=== PATIENT | female | born 2000 | race Caucasian/White ===

== ENCOUNTER → 2024-09-19 | Outpatient (CLI) | payer BC ==
--- NOTE | 2024-09-19 12:23 | XR ---
EXAMINATION TYPE: XR lumbosacral spine min 4V DATE OF EXAM: 09/19/2024 12:13 PM COMPARISON: None. CLINICAL INDICATION: Female, 23 years old with history of PAIN, TECHNIQUE: 5 view(s) obtained. FINDINGS: No spondylolytic defects are evident. Facets appear normal. Disc heights and vertebral body heights a re preserved. Alignment sagittal plane is preserved. Some mild side bending towards the right may be present which can be related to patient positioning or muscle spasm. There are 5 lumbar-type vertebra l bodies. Pedicles are intact. IMPRESSION: 1. Mild side bending to the right which can be positional or related to muscle spasm. 2. Five-view lumbar spine is otherwise unremarkable. [facility], , 09/19/2024 12:21 PM
--- NOTE | 2024-09-19 12:42 | US ---
EXAMINATION TYPE: US pelvic complete DATE OF EXAM: 09/19/2024 COMPARISON: NONE CLINICAL INDICATION: Female, 23 years old with history of R10.84 Abdominal pain; R10.2 Pelvic pain; B ack pain x 1 month, Hx dominant follicle right ovary TECHNIQUE: Transabdominal (TA). Transabdominal grayscale sonographic images of the pelvis were acquired. Doppler imaging: Not performed. FINDINGS: Date of LMP: 08/20/2024 EXAM MEASUREMENTS: Uterus: 7.4 x 3.7 x 3.9 cm Endometrial Stripe: 1.1 cm Right Ovary: 3.0 x 2.0 x 2.1 cm Left Ovary: 3.8 x 2.0 x 3.0 cm 1. Uterus: Anteverted wnl 2. Endometrium: wnl 3. Right Ovary: wnl 4. Left Ovary: Dominant follicle noted 5. Bilateral Adnexa: wnl 6. Posterior cul-de-sac: Fluid noted IMPRESSION: 1. No evidence for acute process. 2. Endometrium within normal limits for thickness. [facility], , 09/19/2024 12:39 PM
--- NOTE | 2024-09-19 22:33 | XR ---
EXAMINATION TYPE: XR thoracic spine complete DATE OF EXAM: 09/19/2024 12:13 PM COMPARISON: None. CLINICAL INDICATION: Female, 23 years old with history of [id number] BACK PAIN, TECHNIQUE: 3 view(s) obtained. FINDINGS: Mild scoliosis present with convexity to the right centered at T5. Vertebral body heights are preserv ed. Disc heights are preserved. Alignment and sagittal planes appears normal. IMPRESSION: 1. Mild scoliosis which can be positional or related to muscle spasm. [facility], , 09/19/2024 10:31 PM
== END | disposition home or self-care (01) ==
LOC: RADUSWWP 11:17
PROVIDERS: ATTEND Family Medicine
DX: M41.84 Other forms of scoliosis, thoracic region (principal); R10.2 Pelvic and perineal pain; M54.50 Low back pain, unspecified; M62.838 Other muscle spasm
CPT/HCPCS: 72072; 72110; 76856

== ENCOUNTER 2025-02-19 09:16 | Day surgery (SDC) | payer BC ==
[~2025-02-19 09:16] MED LIST: LIDOCAINE 1% (10MG/ML) FOR IV START INTRADERMA PRN
[2025-02-19 10:05] VITALS: RESP 16; TEMP 98.1
[2025-02-19] MEDS: LACTATED RINGERS 1,000 ML IV SCH (10:12)
[2025-02-19] MEDS: IV FLUID CONTINUATION 1,000 ML IV ONE (10:12)
[2025-02-19] MEDS ORDERED: PROPOFOL 10 MG/ML 20 ML VIAL IV ONE (11:37)
--- NOTE | 2025-02-19 11:42 | P.GSHP ---
History of Present Illness H&P Date: 02/19/25 Chief Complaint: Change in bowel habits 24-year-old female here for colonoscopy. Patient has had complaints of mucousy stools and some abdominal discomforts. No bleeding. Rare episodes of diarrhea. No family history of inflammatory bowel disease or cancer. Past Medical History Additional Past Medical History / Comment(s): mild scoliosis History of Any Multi-Drug Resistant Organisms: None Reported Past Surgical History: Tonsillectomy Additional Past Surgical History / Comment(s): wisdom teeth removed Past Anesthesia/Blood Transfusion Reactions: No Reported Reaction Past Psychological History: Anxiety Smoking Status: Former smoker Past Alcohol Use History: Occasional Additional Past Alcohol Use History / Comment(s): smoked for about 3 yrs, vaped 4 yrs, quit both over one year ago. drinks 1-2 times a week- advised no alcohol 24 hrs prior to proc. Past Drug Use History: None Reported Medications and Allergies Home Medications Medication Instructions Recorded Confirmed Type No Known Home Medications 02/15/25 02/19/25 History Allergies Allergy/AdvReac Type Severity Reaction Status Date / Time aspirin Allergy Rash/Hives Verified 02/19/25 10:00 Surgical - Exam Vital Signs Temp Pulse Resp BP Pulse Ox 98.1 F 89 16 122/68 100 02/19/25 10:04 02/19/25 10:04 02/19/25 10:04 02/19/25 10:04 02/19/25 10:04 Physical exam: General: Well-developed, well-nourished HEENT: Normocephalic, sclerae nonicteric Abdomen: Nontender, nondistended Extremities: No edema Neuro: Alert and oriented Assessment and Plan (1) Change in bowel habits Narrative/Plan: Will proceed with colonoscopy at this time. Current Visit: Yes Status: Acute Code(s): R19.4 - CHANGE IN BOWEL HABIT SNOMED Code(s): 68126417
--- NOTE | 2025-02-19 11:55 | P.PCN ---
Date of Procedure: 02/19/25 Procedure(s) Performed: PREOPERATIVE DIAGNOSIS: Change in bowel habits POSTOPERATIVE DIAGNOSIS: Normal exam PROCEDURE: Colonoscopy with biopsy ANESTHESIA: MAC SURGEON: Sander Granados M.D. SPECIMENS: Ileum, random colon ENDOSCOPIC PROCEDURE: The patient was placed on the endoscopy table in the left decubitus position. The Olympus colonoscope was inserted into the anus and passed under direct visualization to the base of the cecum. The appendiceal orifice was visualized. The ileum was inspected. Biopsies of the ileum took place. The ileum itself appeared normal. From that point the scope was slowly withdrawn inspecting all surfaces carefully. There were no neoplastic inflammatory or polypoid lesions throughout the cecum, ascending, transverse, descending, sigmoid and rectum. Biopsies were taken randomly throughout the colon. There was no visible diverticulosis. Digital rectal examination was normal. The patient was taken to the recovery room in stable condition per anesthesia guidelines. RECOMMENDATIONS: Await biopsy results. Continue gluten-free diet for now.
[2025-02-19 12:19] VITALS: BP 112/76; PULSE 72
== END 2025-02-19 12:34 | disposition home or self-care (01) ==
LOC: ORWHC2ENDO 09:16
PROVIDERS: ATTEND Surgery
DX: R19.4 Change in bowel habit (principal); R19.7 Diarrhea, unspecified; F41.9 Anxiety disorder, unspecified; Z87.891 Personal history of nicotine dependence; Z88.6 Allergy status to analgesic agent
CPT/HCPCS: 45380; 81025; J2704; 88305